=== PATIENT | female | born 1975 | race Caucasian/White ===

== ENCOUNTER 2020-06-23 11:59 | Emergency (ER) | payer BC ==
[~2020-06-23] VITALS: Ht 154.9 cm; Wt 63.5 kg
--- NOTE | 2020-06-23 12:10 | NUR ---
w/c assist to bed 04
[2020-06-23 12:14] VITALS: BP 117/70
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
--- NOTE | 2020-06-23 12:30 | NUR ---
PORTABLE XRAY AT BEDSIDE
[2020-06-23] MEDS ORDERED: KETOROLAC 60 MG/2 ML VIAL IM ONE (13:00)
[2020-06-23 13:27] VITALS: BP 117/70
--- NOTE | 2020-06-23 13:27 | NUR ---
Patient discharged with v/s stable. Written and verbal after care instructions given and explained. Patient alert, oriented and verbalized understanding of instructions. Ambulatory with steady gait. All questions addressed prior to discharge. ID band removed. Patient advised to follow up with PMD. Rx of MOTRIN AND NORCO given. Patient educated on indication of medication including possible reaction and side effects. Opportunity to ask questions provided and answered.
== END 2020-06-23 13:27 | disposition home or self-care (01) ==
LOC: MED 11:59
DX: M25.571 Pain in right ankle and joints of right foot (principal); V89.2XXA Person injured in unspecified motor-vehicle accident, traffic, initial encounter; Y93.89 Activity, other specified; Y92.89 Other specified places as the place of occurrence of the external cause; Y99.8 Other external cause status
CPT/HCPCS: 73610; 96372; 99283; J1885; Q0092